=== PATIENT | female | born 1975 | race Caucasian/White ===

== ENCOUNTER 2020-07-13 16:35 | Outpatient (CLI) | payer OTHER, SELFPAY ==
[2020-07-16 18:35] LABS: SARS-CoV-2 RNA PCR Positive
== END 2020-07-13 16:36 | disposition home or self-care (01) ==
PROVIDERS: PCP Nurse Practitioner Family; Visit Provider Nurse Practitioner Family
DX: U07.1 COVID-19 (principal)
CPT/HCPCS: 87635; C9803; U0003

== ENCOUNTER 2024-07-22 13:02 | Outpatient (CLI) | payer OTHER, SELFPAY ==
--- NOTE | ~2024-07-22 | XR_ITS ---
Clinical Indication: Cough PA and lateral views of the chest: Comparison: None Findings: The lungs are clear, without evidence of focal consolidation or pleural effusion. Cardiome diastinal silhouette is within normal limits. Bones and soft tissues are unremarkable. Impression: Normal chest. Reviewed, dictated and finalized at [facility]. ASSEMBLER Impression: Normal chest.
== END 2024-07-22 13:03 | disposition home or self-care (01) ==
PROVIDERS: PCP Family Medicine; Visit Provider Family Medicine
DX: R05.9 Cough, unspecified (principal)
CPT/HCPCS: 71046

== ENCOUNTER 2025-03-27 12:20 | Emergency (ER) | payer OTHER, SELFPAY ==
[2025-03-27 12:25] VITALS: BP 156/88; PULSE 96; RESP 16; TEMP 36.5; O2SAT 100
--- NOTE | 2025-03-27 12:26 | ED.EAR ---
HPI - Ear Problem General Chief complaint: Ear Stated complaint: spider bite/ear pain Source: patient and RN notes reviewed Mode of arrival: ambulatory Limitations: no limitations History of Present Illness HPI Narrative: Patient is a 49-year-old female who presents to the [facility] with multiple complaints. Patient has a possible insect bite to her left lower leg. She believes that this wound may now be infected. She states that the redness around the wound continues to worsen. She states that she believes [place] She denies drainage from the wound. Denies recent fevers. Patient also reports bilateral ear pressure. Denies ear drainage. Related Data Home Medications ?Medication ?Instructions ?Recorded ?Confirmed ?Last Taken ?Type cetirizine 10 mg tablet (Zyrtec) 10 mg PO DAILY PRN 10/30/22 04/12/24 Unknown History multivitamin (Daily Multi-Vitamin 1 tablet PO DAILY 04/12/24 04/12/24 Unknown History tablet) Allergies Allergy/AdvReac Type Severity Reaction Status Date / Time Sulfa (Sulfonamide Allergy Unknown Unknown Verified 03/27/25 12:33 Antibiotics) Review of Systems Review of Systems: CONSTITUTIONAL: Denies fever, chills, or sweats. EYES: Denies visual changes, redness, or discharge. ENT: Reports otalgia but denies sore throat CARDIOVASCULAR: Denies chest pain, palpitations, or edema. RESPIRATORY: Denies cough or dyspnea. GASTROINTESTINAL: Denies abdominal pain, nausea, vomiting, or diarrhea. GENITOURINARY: Denies dysuria or hematuria. SKIN: Reports wound to left lower leg. MUSCULOSKELETAL: Denies back pain, joint pain, or myalgia. NEUROLOGIC: Denies headache, numbness, or weakness. Pertinent positives per HPI. [facility] Past Medical History Medical History (Updated 03/27/25 @ 12:40 by Kelsea Hess APRN) Allergies Uses control Anemia Varicose vein of leg 05/2012 Surgical History Surgical History Delivery by section x2 Family History Family History Father Family history of coronary artery disease Social History Social History (Reviewed 08/25/25 @ 12:26 by GERMAN Daniels Smoking status: Never smoker Tobacco type: cigarettes Comments At the time of my signature, I reviewed and agree with the nursing past medical, surgical, social, and family history. There is no relevant family history pertinent to the patient complaint. Exam Narrative: GENERAL: This is a well-nourished, well-developed patient, in no apparent distress. HEAD: normocephalic, atraumatic. EYES: PERRL. Sclera clear/white. Vision is grossly intact. EARS: External ears normal, auditory canals clear and without drainage, TMs normal without perforation. Hearing grossly intact. NOSE: External nose normal with no obvious nasal discharge, nares without redness, no rhinorrhea. THROAT: Mucous membranes moist, posterior pharynx clear. NECK: Neck supple, non-tender without lymphadenopathy, masses or thyromegaly. CARDIOVASCULAR: Regular rate and rhythm without murmurs, gallops, or rubs. RESPIRATORY: Clear to auscultation. Breath sounds equal bilaterally. No wheezes, rales, or rhonchi. GASTROINTESTINAL: Abdomen soft, non-tender, nondistended. Bowel sounds are active. No hepato-splenomegaly, or palpable masses. No guarding. SKIN: Papular wound to the left lower leg with erythema and induration. Centered scab. NEURO: awake, alert, and oriented to person, place and time. There were no obvious focal neurologic abnormalities. Course Course Level of Care: Express Care Visit Vital Signs Vital signs: Vital Signs Temperature 97.7 F 03/27/25 12:25 Pulse Rate 96 03/27/25 12:25 Respiratory Rate 16 03/27/25 12:25 Blood Pressure 156/88 H 03/27/25 12:25 Pulse Oximetry 100 03/27/25 12:25 Oxygen Delivery Room Air 03/27/25 12:25 Temperature 97.7 F 03/27/25 12:25 Pulse Rate 96 03/27/25 12:25 Respiratory Rate 16 03/27/25 12:25 Blood Pressure 156/88 H 03/27/25 12:25 Pulse Oximetry 100 03/27/25 12:25 Oxygen Delivery Room Air 03/27/25 12:25 Reviewed Medical Decision Making MDM Narrative Medical decision making narrative: Clean with soap and water only; Avoid using alcohol and peroxide. Elevate the affected area if possible Alternate Tylenol/ibuprofen for as needed for pain Acetaminophen(Tylenol) 650-1000mg every 4-6hours with max of 4000mg/day. Nonsteroidal anti-inflammatory agent (NSAIDs-ibuprofen): 400mg every 4-6hours with max 2400mg/day Take antibiotic until it's gone. Please schedule a follow up visit with your personal physician for further evaluation and treatment within 3-5days OR if your symptoms persist, change or worsen significantly before you can contact your personal physician then please, without delay, go to the emergency department for further evaluation. Differential Diagnosis Differential Diagnosis: wound infection, spider bite, otitis externa, otitis media, cellulitis Vital Signs Vital Signs: Vital Signs Temperature 97.7 F 03/27/25 12:25 Pulse Rate 96 03/27/25 12:25 Respiratory Rate 16 03/27/25 12:25 Blood Pressure 156/88 H 03/27/25 12:25 Pulse Oximetry 100 03/27/25 12:25 Oxygen Delivery Room Air 03/27/25 12:25 Temperature 97.7 F 03/27/25 12:25 Pulse Rate 96 03/27/25 12:25 Respiratory Rate 16 03/27/25 12:25 Blood Pressure 156/88 H 03/27/25 12:25 Pulse Oximetry 100 03/27/25 12:25 Oxygen Delivery Room Air 03/27/25 12:25 Critical Care Time Critical Care Time Critical Care Time: No Discharge Plan Discharge Clinical Impression: Infected insect bite Qualifiers: Encounter type: initial encounter Qualified Code(s): W57.XXXA - Bitten or stung by nonvenomous insect and other nonvenomous arthropods, initial encounter Patient Disposition: Home Condition: Stable Instructions: Antibiotic Form, Cellulitis (ED), Insect Bite or Sting (ED) Additional Instructions: Clean with soap and water only; Avoid using alcohol and peroxide. Elevate the affected area if possible Alternate Tylenol/ibuprofen for as needed for pain Acetaminophen(Tylenol) 650-1000mg every 4-6hours with max of 4000mg/day. Nonsteroidal anti-inflammatory agent (NSAIDs-ibuprofen): 400mg every 4-6hours with max 2400mg/day Take antibiotic until it's gone. Please schedule a follow up visit with your personal physician for further evaluation and treatment within 3-5days OR if your symptoms persist, change or worsen significantly before you can contact your personal physician then please, without delay, go to the emergency department for further evaluation. Patient Language: Swedish Prescriptions: New doxycycline monohydrate 100 mg capsule 100 mg PO BID 10 Days Qty: 20 0RF fluticasone propionate [Flonase Allergy Relief] 50 mcg/actuation spray,suspension 1 spray intranasal BID Qty: 16 0RF Rx Instructions: administer into each nostril No Action cetirizine [Zyrtec] 10 mg tablet 10 mg PO DAILY PRN multivitamin [Daily Multi-Vitamin] Tablet 1 tablet PO DAILY ipratropium bromide 42 mcg (0.06 %) spray,non-aerosol 2 spray intranasal TID Qty: 15 5RF Rx Instructions: administer into each nostril azelastine 137 mcg (0.1 %) spray,non-aerosol 2 spray intranasal Q12H 90 Days Qty: 30 2RF Rx Instructions: administer into each nostril amoxicillin-pot clavulanate 875-125 mg tablet 1 tablet PO BID Qty: 10 0RF montelukast 10 mg tablet See Rx Instructions .ROUTE .COMPLEX Qty: 90 3RF Dose Instruction: TAKE 1 TABLET BY MOUTH EVERY DAY Rx Instructions: TAKE 1 TABLET BY MOUTH EVERY DAY norgestimate-ethinyl estradiol [Tri-Estarylla] 0.18/0.215/0.25 mg-0.035mg (28) tablet 1 tablet PO DAILY Qty: 84 3RF Follow-up/Referrals: Lauro Grayson DO [Primary Care Provider, [facility]] Time of Disposition: 12:41
--- OUTSIDE RECORDS SUMMARY | 2025-03-27 12:29 | XMS_ITS | Clinical Summary ---
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 Pulse 90 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 MECHANIC Temperature - - Respiratory Rate - - Oxygen Saturation - - Inhaled Oxygen Concentration - - Weight 73.9 kg (163 lb) 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 CNC MECHANIC Height 167.6 cm (5' 6) 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 CNC MECHANIC Body Mass Index 26.31 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 CNC MECHANIC Plan of Treatment Health Maintenance Due Date Last Done Comments Cervical Cancer Screening Pa p Smear (Age 30 to 64) Every 3 Years 1975 Colorectal Cancer Screening Colonoscopy (10 Years) 1975 Annual Physical 11/10/1978 Hepatitis C 11/10/1993 DTaP, Tdap and Td Vaccines ( 1 - Tdap) 11/10/1994 Hepatitis B Vaccines (1 of 3 - 19+ 3-dose series) 11/10/1994 Cervical Cancer Screening Pa p with HPV Testing (Age 30 to 64) Every 5 Years 11/10/2005 Cervical Cancer Screening with HPV 11/10/2005 Mammogram Screening 2015 COVID-19 Vaccine ( - 2023-2 5 season) 2024 Meningococcal B Vaccine Aged Out No l onger eligible based on patient's age to complete this topic Meningococcal Vaccine Aged Out No lynn janel eligible based on patient's age to complete this topic Pneumococcal Vaccine: Pediat rics (0 to 5 Years) and At-Risk Patients (6 to 49 Years) Aged Out No longer eligible b ased on patient's age to complete this topic RSV Immunizations Under 20 Months Aged Out No longer eligible based on patient's age to complete this topic
== END 2025-03-27 12:49 | disposition home or self-care (01) ==
PROVIDERS: Emergency Provider Nurse Practitioner; PCP Family Medicine
DX: S80.862A Insect bite (nonvenomous), left lower leg, initial encounter (principal); L08.9 Local infection of the skin and subcutaneous tissue, unspecified; W57.XXXA Bitten or stung by nonvenomous insect and other nonvenomous arthropods, initial encounter
CPT/HCPCS: 99213; G0463

== ENCOUNTER 2025-07-10 10:17 | Outpatient (CLI) | payer OTHER, SELFPAY ==
--- NOTE | ~2025-07-10 | US_ITS ---
EXAMINATION: US venous doppler LE DATE: 07/10/2025 10:42 INDICATION: Varicose veins with pain TECHNIQUE: Grayscale ultrasound images without and with compression and Doppler ultrasound images of the right lower extremity veins were obtained. COMPARISON: None. FINDINGS: The visualized portions of right common femoral vein, profunda (deep) femoral vein, femoral vein, popliteal vein, peroneal veins, posterior tibial vein outflow are patent. Thrombus is seen in the greater saphenous vein up to the juncture with the common femoral vein. IMPRESSION: 1. No deep venous thrombosis in the right lower extremity. 2. Extensive superficial vein thrombosis within the greater saphenous vein. Reviewed, dictated and finalized at location A. ING MACHINE HOST/HOSTESS
== END 2025-07-10 10:18 | disposition home or self-care (01) ==
PROVIDERS: PCP Nurse Practitioner Family; Visit Provider Nurse Practitioner Family
DX: I83.811 Varicose veins of right lower extremity with pain (principal); I82.811 Embolism and thrombosis of superficial veins of right lower extremity
CPT/HCPCS: 93971